=== PATIENT | female | born 1960 | race Caucasian/White ===

== ENCOUNTER 2023-12-28 06:36 | Day surgery (SDC) | payer OTHER ==
[~2023-12-28] VITALS: Ht 152.4 cm; Wt 43.2 kg
[~2023-12-28 06:36] MED LIST: SODIUM CHLORIDE 0.9% 1,000 ML ONE
[2023-12-28] MEDS: SODIUM CHLORIDE 0.9% 1,000 ML IV ONE (07:37)
[2023-12-28] MEDS ORDERED: MIDAZOLAM HCL 2 MG/2 ML VIAL ONE (07:45)
[2023-12-28] MEDS ORDERED: FentaNYL CITRATE PF 100 MCG/2 ML VIAL ONE (07:45)
[2023-12-28] MEDS ORDERED: DOXY-354 PO (08:21)
[2023-12-28] MEDS ORDERED: PRAV10TA39 PO (08:21)
[2023-12-28] MEDS ORDERED: VERA120T91 PO (08:21)
[2023-12-28] MEDS ORDERED: CALC-1124 PO (08:21)
[2023-12-28] MEDS ORDERED: FAMO20 PO (08:21)
[2023-12-28] MEDS ORDERED: HYDR25TA2 PO (08:21)
[2023-12-28] MEDS ORDERED: CETI-450 PO (08:21)
[2023-12-28 08:45] VITALS: PULSE 80; RESP 18; O2SAT 100
[2023-12-28] MEDS ORDERED: MethylPREDNISolone SOD SUCC 125 MG/2 ML VIAL ONE (09:08)
[2023-12-28] MEDS: MethylPREDNISolone SOD SUCC 125 MG/2 ML VIAL IVP ONE (09:29)
[2023-12-28] MEDS ORDERED: LIDOCAINE 2% 11 ML JELLY TP ONE (12:00)
[2023-12-28] MEDS ORDERED: BENZOCAINE 20% 50 MCG/SPRAY 57 GM TP ONE (12:00)
[2023-12-28] MEDS ORDERED: LIDOCAINE 4% 50 ML SOLUTION TP ONE (12:00)
[2023-12-28] MEDS ORDERED: ALBUTEROL SULFATE 2.5 MG/0.5 ML NEB SOLUTION NEB ONE (12:00)
== END 2023-12-28 11:40 | disposition home or self-care (01) ==
LOC: SURGERY 06:36
PROVIDERS: ATTEND Internal Medicine Critical Care Medicine
DX: R05.3 Chronic cough (principal); R06.1 Stridor; B37.0 Candidal stomatitis; R04.2 Hemoptysis; J84.10 Pulmonary fibrosis, unspecified; J98.8 Other specified respiratory disorders; J98.09 Other diseases of bronchus, not elsewhere classified; R91.8 Other nonspecific abnormal finding of lung field; I10 Essential (primary) hypertension; E78.00 Pure hypercholesterolemia, unspecified; R63.4 Abnormal weight loss; M41.84 Other forms of scoliosis, thoracic region; M47.814 Spondylosis without myelopathy or radiculopathy, thoracic region; Z90.5 Acquired absence of kidney
CPT/HCPCS: 87206; 87101; 87220; 87070; 31623; 31624; 94640; 71045; 87015; J3010; J2250; J2919; Q9967; J7030; J7613; Z7610